=== PATIENT | male | born 1990 | race Caucasian/White ===

== ENCOUNTER 2019-07-13 16:46 | Inpatient (IN) | payer MEDICAID ==
[~2019-07-13] VITALS: Ht 180.3 cm; Wt 92.3 kg
[2019-07-13] MEDS ORDERED: ONDANSETRON ODT 4 MG PO PRN (19:00)
[2019-07-13] MEDS ORDERED: BISACODYL 10 MG SUPP PR PRN (19:00)
[2019-07-13] MEDS ORDERED: POLYETHYLENE GLYCOL 17 GM PACKET PO PRN (19:00)
[2019-07-13] MEDS ORDERED: PLEASE ENTER HEIGHT AND WEIGHT MC SCH (19:00)
[2019-07-13] MEDS ORDERED: DOCUSATE 100 MG CAPSULE PO PRN (19:00)
[2019-07-13 19:05] VITALS: BP 112/78
[2019-07-13 19:30] VITALS: BP 122/74
[2019-07-13] MEDS ORDERED: ALBU6.7H8 INH (19:36)
[2019-07-13] MEDS ORDERED: BENZ2AMP4 PO (19:38)
[2019-07-13] MEDS ORDERED: ARIP2TAB2 PO (19:39)
[2019-07-13 20:00] LABS: FREE T4 (FREE THYROXINE) 1.05 ng/dL (0.76-1.46); LDL/HDL RATIO 2.5 (0.5-3.0)
[2019-07-13] MEDS: NICOTINE 21 MG/24 HR PATCH.TD24 TD SCH (20:25)
[2019-07-13] MEDS ORDERED: ALBUTEROL SULFATE 2.5 MG/3 ML NPPB PRN (22:00)
[2019-07-13 23:42] VITALS: BP 112/78
[2019-07-14 06:44] LABS: BASOPHILS # (AUTO) 0.03 x10^3/uL (0-0.1); BASOPHILS % (AUTO) 1 % (0-1); EOSINOPHILS # (AUTO) 0.22 x10^3/uL (0-0.4); EOSINOPHILS % (AUTO) 4 % (1-7); LYMPHOCYTES # (AUTO) 2.27 x10^3/uL (1-3.4); LYMPHOCYTES % (AUTO) 39 % (22-44); MD NO; MEAN CORPUSCULAR HEMOGLOBIN 30.7 pg (27.5-34.5); MEAN CORPUSCULAR HGB CONC 33.1 g/dL (33.2-36.2); MEAN PLATELET VOLUME 8.2 fL (7.4-10.4); MONOCYTES # (AUTO) 0.38 x10^3/uL (0.2-0.8); MONOCYTES % (AUTO) 6 % (2-9); NEUTROPHILS # (AUTO) 2.98 x10^3/uL (1.8-6.8); NEUTROPHILS % (AUTO) 51 % (42-75); PLATELET COUNT 207 x10^3/uL (130-400); RED BLOOD COUNT 5.17 x10^6/uL (4.38-5.82); RED CELL DISTRIBUTION WIDTH 14.5 % (9.4-14.8)
[2019-07-14 06:52] LABS: ANION GAP 3 mmol/L (5-15); CHLORIDE 111 mmol/L (98-107); CREATININE 0.99 mg/dL (0.7-1.3)
[2019-07-14 07:16] VITALS: BP 124/76
[2019-07-14] MEDS: RISPERIDONE 0.5 MG TABLET PO SCH ×2 (14:37→19:59)
[2019-07-14] MEDS: NICOTINE 21 MG/24 HR PATCH.TD24 TD SCH (14:37)
[2019-07-14 18:55] LABS: MICROSCOPIC NOT IND
[2019-07-14 18:59] LABS: CULTURE INDICATED? NO
[2019-07-14 19:00] VITALS: BP 121/77
[2019-07-14] MEDS: PRAZOSIN 1 MG CAPSULE PO SCH (19:59)
[2019-07-15 07:41] VITALS: BP 106/67
[2019-07-15] MEDS: THIAMINE 100MG TABLET PO SCH (07:49)
[2019-07-15] MEDS: MULTIVITAMIN 1 TABLET PO SCH (07:50)
[2019-07-15] MEDS: RISPERIDONE 0.5 MG TABLET PO SCH ×2 (07:50→20:10)
[2019-07-15] MEDS: NICOTINE 21 MG/24 HR PATCH.TD24 TD SCH (16:20)
[2019-07-15 19:00] VITALS: BP 120/77
[2019-07-15] MEDS: PRAZOSIN 1 MG CAPSULE PO SCH (20:10)
[2019-07-16 07:32] VITALS: BP 119/84
[2019-07-16] MEDS: MULTIVITAMIN 1 TABLET PO SCH (08:24)
[2019-07-16] MEDS: THIAMINE 100MG TABLET PO SCH (08:24)
[2019-07-16] MEDS: RISPERIDONE 0.5 MG TABLET PO SCH ×2 (08:24→20:34)
[2019-07-16] MEDS: NICOTINE 21 MG/24 HR PATCH.TD24 TD SCH (08:24)
[2019-07-16] MEDS: ACETAMINOPHEN 325 MG TABLET PO PRN (11:21)
[2019-07-16] MEDS: QUETIAPINE 25MG TABLET PO PRN (17:39)
[2019-07-16 19:16] VITALS: BP 99/61
[2019-07-16] MEDS: PRAZOSIN 1 MG CAPSULE PO SCH (20:34)
[2019-07-17 07:19] VITALS: BP 130/83
[2019-07-17] MEDS: THIAMINE 100MG TABLET PO SCH (09:18)
[2019-07-17] MEDS: RISPERIDONE 0.5 MG TABLET PO SCH (09:18)
[2019-07-17] MEDS: MULTIVITAMIN 1 TABLET PO SCH (09:18)
[2019-07-17] MEDS: NICOTINE 21 MG/24 HR PATCH.TD24 TD SCH (09:19)
[2019-07-17] MEDS: ACETAMINOPHEN 325 MG TABLET PO PRN ×2 (11:17→15:17)
[2019-07-17 19:41] VITALS: BP 115/75
[2019-07-17] MEDS: PRAZOSIN 1 MG CAPSULE PO SCH (20:45)
[2019-07-17] MEDS: RISPERIDONE 1 MG TABLET PO SCH (20:46)
[2019-07-18 06:55] VITALS: BP 119/76
[2019-07-18] MEDS: NICOTINE 21 MG/24 HR PATCH.TD24 TD SCH (08:41)
[2019-07-18] MEDS: MULTIVITAMIN 1 TABLET PO SCH (08:41)
[2019-07-18] MEDS: THIAMINE 100MG TABLET PO SCH (08:41)
[2019-07-18] MEDS: RISPERIDONE 1 MG TABLET PO SCH ×2 (08:41→20:30)
[2019-07-18 19:22] VITALS: BP 122/78
[2019-07-18] MEDS: PRAZOSIN 1 MG CAPSULE PO SCH (20:30)
[2019-07-19 07:31] VITALS: BP 112/80
[2019-07-19] MEDS: NICOTINE 21 MG/24 HR PATCH.TD24 TD SCH (08:52)
[2019-07-19] MEDS: THIAMINE 100MG TABLET PO SCH (08:52)
[2019-07-19] MEDS: MULTIVITAMIN 1 TABLET PO SCH (08:52)
[2019-07-19] MEDS: ACETAMINOPHEN 325 MG TABLET PO PRN (08:52)
[2019-07-19] MEDS: RISPERIDONE 1 MG TABLET PO SCH ×2 (08:52→20:21)
[2019-07-19] MEDS: QUETIAPINE 25MG TABLET PO PRN (18:10)
[2019-07-19 19:45] VITALS: BP 115/73
[2019-07-19] MEDS: PRAZOSIN 1 MG CAPSULE PO SCH (20:21)
[2019-07-20 07:28] VITALS: BP 124/84
[2019-07-20] MEDS: NICOTINE 21 MG/24 HR PATCH.TD24 TD SCH (08:24)
[2019-07-20] MEDS: RISPERIDONE 1 MG TABLET PO SCH ×2 (08:24→20:45)
[2019-07-20] MEDS: MULTIVITAMIN 1 TABLET PO SCH (08:24)
[2019-07-20] MEDS: THIAMINE 100MG TABLET PO SCH (08:24)
[2019-07-20] MEDS ORDERED: RISP1TAB45 PO (14:54)
[2019-07-20] MEDS ORDERED: MULT1TAB60 PO (14:54)
[2019-07-20] MEDS ORDERED: NICO-487 TD (14:54)
[2019-07-20] MEDS ORDERED: PRAZ1CAP2 PO (14:54)
[2019-07-20 19:15] VITALS: BP 127/79
[2019-07-20] MEDS: ACETAMINOPHEN 325 MG TABLET PO PRN (20:46)
[2019-07-20] MEDS: QUETIAPINE 25MG TABLET PO PRN (20:46)
[2019-07-20] MEDS: PRAZOSIN 1 MG CAPSULE PO SCH (20:46)
[2019-07-21 07:40] VITALS: BP 119/83
[2019-07-21] MEDS: MULTIVITAMIN 1 TABLET PO SCH (08:11)
[2019-07-21] MEDS: THIAMINE 100MG TABLET PO SCH (08:11)
[2019-07-21] MEDS: NICOTINE 21 MG/24 HR PATCH.TD24 TD SCH (08:12)
[2019-07-21] MEDS: RISPERIDONE 1 MG TABLET PO SCH (08:12)
== END 2019-07-21 10:48 | disposition home or self-care (01) | DRG 750 ==
LOC: UNDOADMIN 17:49 → 3E 17:49
PROVIDERS: ADMIT Psychiatry & Neurology Psychosomatic Medicine; ATTEND Psychiatry & Neurology Psychosomatic Medicine
DX: F20.0 Paranoid schizophrenia (principal); R45.851 Suicidal ideations; Z59.0 Homelessness; F12.10 Cannabis abuse, uncomplicated; F15.90 Other stimulant use, unspecified, uncomplicated; F17.200 Nicotine dependence, unspecified, uncomplicated; F51.5 Nightmare disorder; Z79.899 Other long term (current) drug therapy; Z88.0 Allergy status to penicillin
CPT/HCPCS: 36415; 71045; 80048; 80061; 81003; 82607; 84439; 84443; 85025; 93005; 94640; J7613